=== PATIENT | female | born 1995 | race Caucasian/White ===

== ENCOUNTER → 2019-02-01 | Outpatient (CLI) | payer OTHER | LOC: M LRY 09:34 | PROVIDERS: ATTEND Nurse Practitioner Family | DX: Z00.00 Encounter for general adult medical examination without abnormal findings (principal) ==

== ENCOUNTER → 2019-02-15 | Outpatient (CLI) | payer OTHER ==
--- NOTE | 2019-02-15 13:23 | REP ---
PELVIC ULTRASOUND: Real-time sonographic evaluation of the pelvis performed utilizing transabdominal and endovaginal technique. Bladder measures 5.3 x 3.1 x 9.6 cm. Uterus measures 8.0 x 3.6 x 5.2 cm. Endometrial thickness is 6.0 mm with no endometrial fluid collection. Ovaries appear normal in size and echotexture, right ovary measuring 2.4 x 2.5 x 3.3 cm and left ovary 3.3 x 2.9 x 2.6 cm. Normal appearing follicles are seen in each ovary. Blood flow is seen in each ovary with duplex Doppler evaluation with no torsion. IMPRESSION: Negative pelvic ultrasound. Electronically Signed by Gaetano Odom MD 02/15/2019 03:52 P
== END ==
LOC: M LRY 08:10
PROVIDERS: ATTEND Nurse Practitioner Family
DX: R10.2 Pelvic and perineal pain (principal)

== ENCOUNTER → 2019-02-16 | Outpatient (REF) | payer OTHER, SELFPAY ==
[2019-02-17 12:48] LABS: CHLAMYDIA DNA AMPLIFICATION NEGATIVE (NEGATIVE); GC DNA AMPLIFICATION NEGATIVE (NEGATIVE)
== END ==
LOC: M WHC 17:09
PROVIDERS: ATTEND Obstetrics & Gynecology
DX: R10.2 Pelvic and perineal pain (principal)
CPT/HCPCS: 87661; G0123